=== PATIENT | female | born 1960 | race Caucasian/White ===

== ENCOUNTER → 2021-09-17 09:15 | Outpatient (BNVA) | payer OTHER, SELFPAY | PROVIDERS: PCP Internal Medicine Endocrinology, Diabetes & Metabolism; Visit Provider Hospitalist ==

== ENCOUNTER 2021-09-20 06:38 | Outpatient (REF) | payer OTHER, SELFPAY ==
--- NOTE | ~2021-09-20 | XR_ITS ---
EXAMINATION: XR CHEST CLINICAL INFORMATION: Asthma COMPARISON: None TECHNIQUE: 2 views of the chest were obtained. FINDINGS: The cardiac and mediastinal contours are normal. There is increased opacity in the right upper lobe. This may be related to overlapping bone and vascular structures, right first rib costochondral cartilage. This measures 3 x 4 cm. No abnormality is evident on the lateral view. The lungs are otherwise clear. There is no pleural effusion or pneumothorax. There are degenerative changes of the spine. XR/XR chest 2V IMPRESSION: Increased opacity in the right medial upper lobe. This may be related to overlapping bone and vascular structures. Comparison with old outside chest x-rays if available is recommended. Otherwise follow-up apical lordotic view of the chest or chest CT scan should be considered.
[2021-09-20 07:02] LABS: MANUAL DIFF FLAG NO
[2021-09-20 07:26] LABS: Basophils Absolute Auto 0.1 X10*3/uL (0.0-0.2); Eosinophils Absolute Auto 0.1 X10*3/uL (0.0-0.4); Eosinophils Percent Auto 2.1 % (0-4); Hematocrit 43.3 % (37.0-47.0); Hemoglobin 13.3 g/dl (12.0-16.0); Imm Gran Abs Auto 0.01 X10*3/uL (0.00-0.03); Imm Gran Pct Auto 0.2 % (0.0-0.4); Lymphocytes Absolute Auto 1.3 X10*3/uL (1.2-4.9); Lymphocytes Percent Auto 25.8 % (20-40); Mean Corpuscular HGB Conc 30.7 g/dl (31.0-35.0); Mean Corpuscular Hemoglobin 28.6 pg (27.0-33.0); Mean Corpuscular Volume 93.1 fL (80.0-98.0); Mean Platelet Volume 12.1 fL (9.4-12.3); Monocytes Absolute Auto 0.5 X10*3/uL (0.1-1.2); Monocytes Percent Auto 9.8 % (2-11); Neutrophils Absolute Auto 3.1 x10*3/uL (2.0-8.3); Neutrophils Percent Auto 61.1 % (45-73); Platelet Count 236 X10*3/uL (160-400); Red Blood Count 4.65 X10*6/uL (4.20-5.50); Red Cell Distribution Width 12.7 % (11.0-16.0); White Blood Count 5.1 X10*3/uL (4.8-10.8)
[2021-09-20 08:08] LABS: Erythrocyte Sedimentation Rate 9 MM/HR (0-20)
[2021-09-21 08:50] LABS: Immunoglobulin E 77 kU/L (<OR=114)
[2021-09-29 15:11] LABS: Asperg fumigatus Precip Abs NEGATIVE (NEGATIVE); Micropoly faeni Abs NEGATIVE (NEGATIVE); Pigeon serum Abs NEGATIVE (NEGATIVE); Saccharo pora viridis Abs NEGATIVE (NEGATIVE); Thermo candidus Abs NEGATIVE (NEGATIVE); Thermoa vulgaris #1 NEGATIVE (NEGATIVE)
== END 2021-09-20 06:39 | disposition home or self-care (01) ==
LOC: HO.LAB 06:38
PROVIDERS: PCP Internal Medicine Endocrinology, Diabetes & Metabolism; Visit Provider Hospitalist
DX: J45.909 Unspecified asthma, uncomplicated (principal); R91.8 Other nonspecific abnormal finding of lung field; Z91.09 Other allergy status, other than to drugs and biological substances
CPT/HCPCS: 36415; 71046; 82785; 85025; 85652; 86003; 86331; 86606; 86609

== ENCOUNTER → 2021-11-02 14:27 | Outpatient (BNVA) | payer OTHER, SELFPAY | PROVIDERS: PCP Internal Medicine Endocrinology, Diabetes & Metabolism; Visit Provider Internal Medicine Pulmonary Disease ==

== ENCOUNTER → 2021-11-06 09:45 | Outpatient (BNVA) | payer OTHER, SELFPAY | PROVIDERS: PCP Internal Medicine Endocrinology, Diabetes & Metabolism; Visit Provider Hospitalist | DX: J45.909 Unspecified asthma, uncomplicated (principal); R91.8 Other nonspecific abnormal finding of lung field; T78.40XA Allergy, unspecified, initial encounter; K21.9 Gastro-esophageal reflux disease without esophagitis; J32.9 Chronic sinusitis, unspecified; J31.0 Chronic rhinitis | CPT/HCPCS: 99212 ==

== ENCOUNTER 2022-01-09 08:29 | Outpatient (REF) | payer BC, SELFPAY ==
--- NOTE | ~2022-01-09 | XR_ITS ---
EXAMINATION: XR CHEST CLINICAL INFORMATION: Abnormal finding COMPARISON: 09/20/2021 TECHNIQUE: 2 views of the chest were obtained. XR/XR chest 2V FINDINGS/IMPRESSION: * Persistent opacity within the medial right upper lobe adjacent to the mediastinum. As discussed previously, this may relate to summation shadow from overlapping bone, cartilage calcifications and vascular structures, however the possibility of an underlying lung mass is not excluded. Recommend CT chest. * Left lung clear. * Normal heart size and pulmonary vascularity.
== END 2022-01-09 08:30 | disposition home or self-care (01) ==
LOC: HO.XRAY 08:29
PROVIDERS: PCP Internal Medicine Endocrinology, Diabetes & Metabolism; Visit Provider Hospitalist
DX: R39.89 Other symptoms and signs involving the genitourinary system (principal)
CPT/HCPCS: 71046

== ENCOUNTER → 2022-01-16 08:42 | Outpatient (BNVA) | payer BC, SELFPAY | PROVIDERS: PCP Internal Medicine Endocrinology, Diabetes & Metabolism; Visit Provider Hospitalist | DX: J45.909 Unspecified asthma, uncomplicated (principal) ==

== ENCOUNTER 2023-06-17 14:22 | Outpatient (AMB) | payer BC, SELFPAY ==
--- NOTE | 2023-06-17 14:33 | MHC.OFFVIS ---
Intake Vital Signs 06/17/23 14:34 Height 5 ft 7 in Weight 154 lb 15.759 oz BMI 24.3 Pulse 68 Pulse Source Pulse Oximeter Pulse Oximetry (%) 100 Oxygen Delivery Method Room Air Intake Visit Reasons: Asthma follow-up Unit Aid Required: No Allergies No Known Allergies Allergy (Verified 06/17/23 14:35) HPI HPI Comments History of Present Illness Details The patient is a 63-year-old woman with a known history of psoriatic arthritis in addition to asthma. Apparently she was in her usual state health until back around June 2021 when she was any usual state health. She took her regular inhaler which included Wixela 100/50 and she was cleaning the backyard and raking the leaves. That night she started developing worsening chest tightness. She did have to use rescue inhaler. However, the next day her symptoms got significantly worse. She had significant breathlessness which she had to go outside. She was having respiratory distress. She was able to use her rescue inhaler and gave herself about 6 puffs when slowly improving her symptoms. She did not go to the ER. She then was placed on prednisone and also received a Z-Angelito. The patient finished the course. She has not had any more episodes like that. Although she was so distressed that she has been traumatized from it. She thought she was going to from that event. In the meantime she has been taking Zyrtec and alternating with Laurie. She continues use her respiratory therapy as prescribed. She did have allergy testing back around 30 years ago and she did get allergy shots for about 4 years and they did improve her symptoms. After that for the last 10 or more years she has had increasing asthma and allergy symptoms. We did review her pulmonary function studies that she had back in 2019 which demonstrated significant small airways disease consistent with her severity of asthma. In addition to that her FEV1 to FVC was 72% pre bronchodilator is a 74% post bronchodilators suggesting some Almeida of obstructive physiology. The patient has not had an x-ray. She is also not interested in taking too many medications. We will provide her with a spacer and we did give her T she has not had to use it. She is going to continue with Wixela. Will request additional information cleaning an x-ray and allergy testing. At some point the springtime will perform pulmonary function study to address her obstructive airway disease. 11/06/2021 the patient is here for pulmonary follow-up visit. Recently she was evaluated by our pulmonary office due to worsening cough and shortness breath. She was treated for an asthma exacerbation with a Z-Angelito and also prednisone. She was also given cough syrup. She is still having some issues with sinus congestion and postnasal drip. She also has hoarseness. Her lungs actually sound clear. I presume that most of her symptoms are from sinusitis and postnasal drip. The patient is reluctant to use any nasal sprays but she is willing to use it to see if there is any relief. She did get a Neti pot also and we did talk about the importance of sinus rinsing. We did review her blood work demonstrating no significant allergens although her IgE level was slightly elevated at 73. The rest of the blood work was unremarkable. No clear explanation for the respiratory distress that she developed back in June when she was raking the leaves. We did review her chest x-ray which appears to have some areas of opacity in the right lung. Based on her ongoing symptoms in the abnormal chest x-ray the patient will benefit from getting a CT scan of the chest. 01/16/2022 the patient is here for a pulmonary follow-up visit. Overall she is doing well from a respiratory status. Has not required any prednisone antibiotics since we last spoke. She does continue to use her respiratory therapy with good effect. She has not had to use her rescue inhaler. In the meantime she did undergo a repeat chest x-ray to address the abnormal findings on her initial 1. we had referred for her to get a CT scan. But, she was concerned about the financial component. Therefore she wanted to get the x-ray 1st to make sure. We did review the x-ray is still demonstrated the persistent changes located on the right upper lung zone. Therefore, based on the fact that she still has changes will go ahead and request a CT scan at this time. In addition to that the patient is concerned over his small airways disease. Her last PFTs were back in 2019. Will plan to repeat dose in 6 months. 07/08/2022 the the patient is here for pulmonary follow-up visit. Overall the patient has been doing well. She did go back to using her Advair. She did stop it for some time but noticed that her breathing got worse. Usually falls there were season. Therefore she is using it twice a day. I did encourage her that if she feels better she can always decrease to 1 puff a day. We did review her most recent CT scan that she had in the spring. It appears that the abnormality noted on her chest x-ray was mainly complement of shadows because on the CT scan she did not have any parenchymal disease. She did have a small 2 mm pulmonary nodule that is not significant in appearance. At some point the patient did have a repeat CT scan possibly sometime next year. She does complaint at times of some esophageal spasms or some substernal chest discomfort. This has been evaluated in the past. We talked about the importance of reflux diet. The patient is doing most of better already. She can also use [id number] medications such as Pepcid as needed for her discomfort. The patient did have a bad fall and she fractured her coccyx and therefore she could not have her pulmonary function studies. Clinically the patient is feeling better so it would not change anything right now anyway. 06/17/2023 the patient is here for pulmonary follow-up visit. Overall the patient has been doing well. Unfortunately she did have a bad fall landing on her right shoulder resulting in clavicular fracture. She has significant ecchymosis in the area. There is healed well. She did not need surgery. Her respiratory status was not impacted. She continues on the inhaler. She was switched over to Wixela. She is getting some phonation issues with hoarseness. Is hard when she speaks for a long time where she loses her voice because of the medication. Therefore, will switch over to an Advair HFA with a spacer. This will provide her with less irritation and better administration of the medication. The patient does not any breathing studies at this point. No imaging studies are warranted. Will follow-up in a year's time or sooner if any issues arise. Will consider spirometry when she comes in here. [facility] Medical History (Updated 06/17/23 @ 14:47 by Tyrone Vail MD) Sinusitis GERD (gastroesophageal reflux disease) Allergies Asthma Social History (Updated 11/06/21 @ 10:02 by NILAY Hernandez) Patient Tobacco Use Status: Never used Tobacco Review of Systems Const Denies night sweats ENT Denies hoarseness, Denies lip swelling, Reports nasal congestion, Reports nasal discharge, Reports post nasal drip, Denies sinus pressure and Denies tongue swelling Card Denies chest pain Resp Reports cough GI Denies abdominal pain Musc Denies no additional complaints Neuro Denies Neuro-related abnormal movements Psych Denies no additional complaints Ko/Lymph Denies easy bleeding and Denies lymphadenopathy Aller/Immun Denies lip swelling and Denies tongue swelling Physical Exam Vital Signs: Last Vital Signs Pulse 68 06/17/23 14:34 Pulse Ox 100 06/17/23 14:34 Oxygen Delivery Method Room Air 06/17/23 14:34 BMI result Body Mass Index 24.3 Const General: alert Neck Neck: Yes normal visual inspection, Yes full ROM and Yes no lymphadenopathy Chest Chest palpation & inspection: normal inspection of the chest Resp Effort & Inspection: normal respiratory effort Auscultation: no wheezes and diminished lung sounds Cardio Rate: regular rate Rhythm: regular rhythm Heart sounds: S1 normal heart sound present and S2 normal heart sound present GI Palpation (GI): Soft to palpation and nontender Auscultation: normal bowel sounds Skin General skin exam: rashes and/or lesions noted Assessment & Plan Assessment & Plan (1) Asthma: Code(s): J45.909 - Unspecified asthma, uncomplicated Qualifiers: Asthma complication type: uncomplicated Asthma persistence: persistent Asthma severity: moderate Qualified Code(s): J45.40 - Moderate persistent asthma, uncomplicated (2) Allergies: Code(s): T78.40XA - Allergy, unspecified, initial encounter Qualifiers: Encounter type: initial encounter Qualified Code(s): T78.40XA - Allergy, unspecified, initial encounter (3) GERD (gastroesophageal reflux disease): Code(s): K21.9 - Gastro-esophageal reflux disease without esophagitis Qualifiers: Esophagitis presence: without esophagitis Qualified Code(s): K21.9 - Gastro-esophageal reflux disease without esophagitis Plan continue nasal rinsing continue Fluticasone stop Wixela start Advair HFA Short-acting beta agonist as needed reflux diet Follow-up in 12 months Medications: New fluticasone propion-salmeterol 115-21 mcg/actuation (Advair HFA) 2 puffs inhalation Q12H 90 days 3 ea 3RF Coding Level of Care Code Est Pt Level 4 (84977) Diagnoses Moderate persistent asthma without complication J45.40 Asthma complication type: uncomplicated Asthma persistence: persistent Asthma severity: moderate Allergy, initial encounter T78.40XA Encounter type: initial encounter Gastroesophageal reflux disease without esophagitis K21.9 Esophagitis presence: without esophagitis Time Spent (min) 16
[2023-06-17 14:34] VITALS: PULSE 68; O2SAT 100; BMI 24.3
== END 2023-06-17 15:06 | disposition home or self-care (01) ==
PROVIDERS: PCP Internal Medicine Endocrinology, Diabetes & Metabolism; Visit Provider Hospitalist
DX: J45.40 Moderate persistent asthma, uncomplicated (principal); T78.40XA Allergy, unspecified, initial encounter; K21.9 Gastro-esophageal reflux disease without esophagitis
CPT/HCPCS: 99214

== ENCOUNTER → 2023-06-17 14:22 | Outpatient (BNVA) | payer BC, SELFPAY | PROVIDERS: PCP Internal Medicine Endocrinology, Diabetes & Metabolism; Visit Provider Hospitalist ==

== ENCOUNTER 2025-01-04 08:45 | Outpatient (REF) | payer OTHER, SELFPAY ==
--- NOTE | ~2025-01-04 | XR_ITS ---
EXAMINATION: XR CHEST CLINICAL INFORMATION: R93.89 - Abnormal findings on diagnostic imaging of other specified body... COMPARISON: January 09, 2022. TECHNIQUE: 2 views of the chest were obtained. FINDINGS: Exam has been archived inverted [id number]. No consolidation, pleural effusion or pneumothorax. Cardiomediastinal silhouette size is normal. Multilevel thoracic spondylosis. Degenerative changes in the shoulders. XR/XR chest 2V IMPRESSION: No acute airspace disease. Electronically signed by: Nirmal Vega MD 01/04/2025 10:01 AM EDT
--- OUTSIDE RECORDS SUMMARY | 2025-01-04 10:12 | XMS_ITS ---
Author Name [facility] Organization Unknown Immunizations Vaccine Date Source Lot Number Status Pfizer Comirnaty Covid-19 Pr efilled Syringe (12+ yrs) 06/02/2024 [facility] [id number] completed Fluzone Quadrivalent Single Dose Vial 05/29/2022 [facility] T [id number] completed Fluzone Quadrivalent Single Dose Vial 05/30/2021 [facility] T [id number] completed Encounters Encounter Type Encounter Reason Primary Diagnosis Location Date Ambulatory Covid Vaccination Encounter for immunization [facility] 06/02/2024 Care Team Organization Name Specialty Phone Email Start Date End Da te [facility] NO PCP Primary Care 06/02
--- OUTSIDE RECORDS SUMMARY | 2025-01-04 10:13 | XMS_ITS | Continuity of Care Document ---
Author Organization [facility] [address] [place] [address] Phone [phone] Care Team Providers Care Nurse Ldr Name Role Phone Lynn Landeros M.D. Care Team Informati on Reeling Machine Setup Operator [phone] Problems Active Problems Provider Date Hypothyroidism Lynn Landeros M.D. Ons et: 07/12/2022 Psoriatic arthritis Lynn Landeros M.D. Onset: 07/12/2022 Environmental allergy Agnieszka Croft Onset: 07/12/2022 Asthma Lynn Landeros M.D. Ons et: 07/12/2022 Osteopenia Lynn Landeros M.D. Ons et: 07/12/2022 Doe thyroiditis Agnieszka rCoft Onset: 07/12/2022 Migraine Lynn Landeros M.D. Ons et: 07/12/2022 Hemangioma of liver Lynn Landeros M.D. 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 then on every 4th day, decrease dose by 1 tablet. take until finished. 30tabs Lynn Landeros M.D. 11/30/2024 Wixela Kbcsl703-37ghl/Act Aerosol use 1 inhalation two times a day 180units Lynn Landeros M.D. 05/20/2024 Calcipotriene/Betam ethasone Dipropionate0.005-0 .064% Ointment Apply Once A Day as Directed For Psoriasis 120gm Lynn Landeros M.D. 05/20/2024 Fykwxjuel657bgj Tablets Take 1 Tablet By Mouth Daily 90tabs Lynn Landeros M.D. Zyrtec Zfdnrqn88rc Tablets 1 by mouth every day at bedtime Lynn Landeros M.D. Vitamin B540klr (2000 Ut) Capsules 1 by mouth every day Lynn Landeros M.D. Calcium-Dbrtglghn23 0-250mg Tablets 1 by mouth every day Lynn Landeros M.D. Proventil AQS474(90Base) mcg/Act Aerosol 2 puffs every 4-6 hours [...] Grant 13 mg/dL 5-40 LDL Chol Calc ([facility]) 192 mg/dL High 0-99 LDL Calc Comment: [...] Gap 15.0 mmol/L 10.0-18. 0 Albumin 07/21/2023 [facility] Albumin 4.5 GM/DL (3.4-4.8 ) Basic Metabolic Panel 07/21/2023 [facility] Glucose 76 mg/dL (70-99) BUN 21 mg/dL (8-23) Creatinine 0.9 mg/dL (0.5-1.0 ) Sodium 139 mmol/L (133-145 ) Potassium 5.6 mmol/L High (3.6-5.2 ) Chloride 102 mmol/L (98-107) Bicarbonate 29 mmol/L (22-29) Anion Gap 8 (4-17) Calcium 10.7 mg/dL High (8.6-10. 5) Estimated GFR Creatinine 72 ML/MIN/1.73M 2 3 Cortisol 07/21/2023 [facility] Cortisol 9.3 g /dL 4 Albumin 07/16/2023 [facility] Albumin <pending> Complete Abc With Diff 07/15/2023 [facility] WBC 6.4 K/MM3 (4.0-11. [...] ) Lymph # 1.8 K/MM3 (0.8-3.1 ) Bourbon# 0.5 K/MM3 (0.4-0.9 ) Eo # 0.3 K/MM3 (0.0-0.4 ) Baso # 0.1 K/MM3 (0.0-0.1 ) Abs. Imm Gran 0.0 K/MM3 Neut 58.2 % (44-76) Lymph 28.3 % (15-43) Monocyte 8.4 % (4.5-10. 5) Eo 3.9 % (0-6) Baso 0.9 % (0-2) Imm Gran 0.3 % Basic Metabolic Panel 07/15/2023 [facility] Glucose 93 mg/dL (70-99) BUN 19 mg/dL (8-23) Creatinine 0.8 mg/dL (0.5-1.0 ) Sodium 140 mmol/L (133-145 ) Potassium 5.5 mmol/L High (3.6-5.2 ) Chloride 102 mmol/L (98-107) Bicarbonate 30 mmol/L High (22-29) Anion Gap 8 (4-17) Calcium 10.9 mg/dL High (8.6-10. 5) Estimated GFR Creatinine 80 ML/MIN/1.73M 2 5 TSH With Reflex To FT4 07/15/2023 [facility] TSH With Reflex To FT4 2.75 uIU/mL (0.4-4.2 ) TSH With Reflex To FT4 01/14/2023 [facility] TSH With Reflex To FT4 3.18 uIU/mL (0.4-4.2 ) Hepatic Function Panel 01/03/2023 [facility] Bilirubin,Total 0.4 mg/dL (0-1.2) Bilirubin, Direct <0.2 mg/dL (0-0.3) Indirect Bilirubin Direct bilirubin <SEE NOTE> mg/dL (0.0-0.7 ) 6 Albumin 4.6 GM/DL (3.4-4.8 ) Ast 27 U/L (0-32) Alt 16 U/L (0-33) Alk Phos 82 U/L (35-104) Total Protein 6.9 GM/DL (6.2-8.2 ) Lipid Panel 01/03/2023 [facility] Cholesterol, Total 227 mg/dL High (<200) Triglyceride 62 mg/dL (<150) HDL Chol 69 mg/dL (>39) LDL Cholesterol , Calculated 146 mg/dL High (0-130) Non HDL Cholesterol (Calc) 158 mg/dL (<160) Complete Abc With Diff 07/15/2022 [facility] WBC 3.9 K/MM3 Low [...] ) Lymph # 1.5 K/MM3 (0.8-3.1 ) Bourbon# 0.4 K/MM3 (0.4-0.9 ) Eo # 0.2 K/MM3 (0.0-0.4 ) Baso # 0.1 K/MM3 (0.0-0.1 ) Neut 44.0 % (44-76) Lymph 30.0 % (15-43) Atypical Lymphs 8.0 % High (0-4) Monocyte 10.0 % (4.5-10. 5) Eo 6.0 % (0-6) Baso 2.0 % (0-2) PLT Estimate ADEQUATE Comprehensive Metabolic Panl 07/15/2022 [facility] Glucose 93 mg/dL (70-99) [...] 79 ML/MIN/1.73M 2 7 Lipid Panel 07/15/2022 [facility] Cholesterol, Total 206 mg/dL High (<200) Triglyceride 76 mg/dL (<150) HDL Chol 56 mg/dL (>39) LDL Cholesterol , Calculated 135 mg/dL High (0-130) Non HDL Cholesterol (Calc) 150 mg/dL (<160) TSH With Reflex To FT4 07/15/2022 [facility] TSH With Reflex To FT4 1.73 uIU/mL (0.4-4.2 ) 25Oh Vitamin D 07/15/2022 [facility] 25Oh Vitamin D 37.3 NG/ML (20-50) Hemoglobin A1c 07/15/2022 [facility] Hemoglobin A1c 5.6 % [...] with health care provider. DIAGNOSTIC USE: The [place] Diabetes Association (ADA) and the World Health [...] 1 Procedures Date Code Description Status 07/15/2023 19109 Collection Of Venous Blood B y Venipuncture Completed 01/14/2023 55096 Collection Of Venous Blood B y Venipuncture [...] Code Description Provider 11/30/2024 Z00.01 Encounter for [facility] adult medical examination with abnormal findings Lynn [...]
== END 2025-01-04 08:46 | disposition home or self-care (01) ==
LOC: HO.XRAY 08:45
PROVIDERS: PCP Internal Medicine Endocrinology, Diabetes & Metabolism; Visit Provider Hospitalist
DX: R93.89 Abnormal findings on diagnostic imaging of other specified body structures (principal)
CPT/HCPCS: 71046

== ENCOUNTER 2025-01-04 08:45 | Outpatient (AMB) | payer BC, SELFPAY ==
--- NOTE | 2025-01-04 08:56 | MHC.OFFVIS ---
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 Apparently she was in her usual state health until back around June 2021 when she was any usual state health. She took her regular inhaler which included Wixela 100/50 and she was cleaning the backyard and raking the leaves. That night she started developing worsening chest tightness. She did have to use rescue inhaler. However, the next day her symptoms got significantly worse. She had significant breathlessness which she had to go outside. She was having respiratory distress. She was able to use her rescue inhaler and gave herself about 6 puffs when slowly improving her symptoms. She did not go to the ER. She then was placed on prednisone and also received a Z-Angelito. The patient finished the course. She has not had any more episodes like that. Although she was so distressed that she has been traumatized from it. She thought she was going to from that event. In the meantime she has been taking Zyrtec and alternating with Laurie. She continues use her respiratory therapy as prescribed. She did have allergy testing back around 30 years ago and she did get allergy shots for about 4 years and they did improve her symptoms. After that for the last 10 or more years she has had increasing asthma and allergy symptoms. We did review her pulmonary function studies that she had back in 2019 which demonstrated significant small airways disease consistent with her severity of asthma. In addition to that her FEV1 to FVC was 72% pre bronchodilator is a 74% post bronchodilators suggesting some Almeida of obstructive physiology. The patient has not had an x-ray. She is also not interested in taking too many medications. We will provide her with a spacer and we did give her T she has not had to use it. She is going to continue with Wixela. Will request additional information cleaning an x-ray and allergy testing. At some point the springtime will perform pulmonary function study to address her obstructive airway disease. 11/06/2021 the patient is here for pulmonary follow-up visit. Recently she was evaluated by our pulmonary office due to worsening cough and shortness breath. She was treated for an asthma exacerbation with a Z-Angelito and also prednisone. She was also given cough syrup. She is still having some issues with sinus congestion and postnasal drip. She also has hoarseness. Her lungs actually sound clear. I presume that most of her symptoms are from sinusitis and postnasal drip. The patient is reluctant to use any nasal sprays but she is willing to use it to see if there is any relief. She did get a Neti pot also and we did talk about the importance of sinus rinsing. We did review her blood work demonstrating no significant allergens although her IgE level was slightly elevated at 73. The rest of the blood work was unremarkable. No clear explanation for the respiratory distress that she developed back in June when she was raking the leaves. We did review her chest x-ray which appears to have some areas of opacity in the right lung. Based on her ongoing symptoms in the abnormal chest x-ray the patient will benefit from getting a CT scan of the chest. 01/16/2022 the patient is here for a pulmonary follow-up visit. Overall she is doing well from a respiratory status. Has not required any prednisone antibiotics since we last spoke. She does continue to use her respiratory therapy with good effect. She has not had to use her rescue inhaler. In the meantime she did undergo a repeat chest x-ray to address the abnormal findings on her initial 1. we had referred for her to get a CT scan. But, she was concerned about the financial component. Therefore she wanted to get the x-ray 1st to make sure. We did review the x-ray is still demonstrated the persistent changes located on the right upper lung zone. Therefore, based on the fact that she still has changes will go ahead and request a CT scan at this time. In addition to that the patient is concerned over his small airways disease. Her last PFTs were back in 2019. Will plan to repeat dose in 6 months. 07/08/2022 the the patient is here for pulmonary follow-up visit. Overall the patient has been doing well. She did go back to using her Advair. She did stop it for some time but noticed that her breathing got worse. Usually falls there were season. Therefore she is using it twice a day. I did encourage her that if she feels better she can always decrease to 1 puff a day. We did review her most recent CT scan that she had in the spring. It appears that the abnormality noted on her chest x-ray was mainly complement of shadows because on the CT scan she did not have any parenchymal disease. She did have a small 2 mm pulmonary nodule that is not significant in appearance. At some point the patient did have a repeat CT scan possibly sometime next year. She does complaint at times of some esophageal spasms or some substernal chest discomfort. This has been evaluated in the past. We talked about the importance of reflux diet. The patient is doing most of better already. She can also use [id number] medications such as Pepcid as needed for her discomfort. The patient did have a bad fall and she fractured her coccyx and therefore she could not have her pulmonary function studies. Clinically the patient is feeling better so it would not change anything right now anyway. 06/17/2023 the patient is here for pulmonary follow-up visit. Overall the patient has been doing well. Unfortunately she did have a bad fall landing on her right shoulder resulting in clavicular fracture. She has significant ecchymosis in the area. There is healed well. She did not need surgery. Her respiratory status was not impacted. She continues on the inhaler. She was switched over to Wixela. She is getting some phonation issues with hoarseness. Is hard when she speaks for a long time where she loses her voice because of the medication. Therefore, will switch over to an Advair HFA with a spacer. This will provide her with less irritation and better administration of the medication. The patient does not any breathing studies at this point. No imaging studies are warranted. Will follow-up in a year's time or sooner if any issues arise. Will consider spirometry when she comes in here. 01/04/2025 the patient is here for pulmonary follow-up visit. Overall she is doing better. Recently she did have a viral syndrome resulting asthma exacerbation. She went to her primary care doctor who gave her some prednisone. Afterwards she did develop some issues with vertigo. She has been dealing with it now. It does not seem as bad. She has been concerned though when she changes positions she sometimes starts feeling dizzy spinning around. She has not had any vomiting. We did talk about benign positional vertigo and the fluid shifts that happened with prednisone. In the meantime the patient did have a chest x-ray back at [facility] in the spring of 2023. It demonstrated a the sclerotic lesion in the vertebral body. She has not had any more imaging studies since she lost her insurance at that point. Will have her get an x-ray at this time. If his abnormal she has may need a CAT scan. The patient also decided having some hoarseness. Her Advair was switched over to powdered Wixela. His cousins increased hoarseness and she does have some thrush. Therefore will switch her back to HFA, combination inhaler and will give her then lozenges. The patient returns 6 months if she has any issues prior to this she will call for an earlier assessment. [facility] Medical History (Updated 06/17/23 @ 14:47 by Tyrone Vail MD) Sinusitis GERD (gastroesophageal reflux disease) Allergies Asthma Social History Patient Tobacco Use Status: Never used Tobacco Review of Systems Const Denies chills, Denies fatigue, Denies fever(s), Denies weight gain and Denies weight loss ENT Denies dizziness, Reports hoarseness, Denies lip swelling and Denies tongue swelling Card Denies chest pain, Denies leg edema, Denies lightheadedness, Denies palpitations, Denies dyspnea on exertion, Denies orthopnea and Denies other Resp Reports cough, Denies dyspnea on exertion and Reports wheezing GI Denies hematochezia and Denies change in stool character Musc Denies abnormal gait, Denies muscle weakness, Denies numbness, Denies radiating pain into limb and Denies tingling Neuro Denies abnormal gait, Denies dizziness, Denies numbness and Denies tingling Psych Denies no additional complaints Endo Denies fatigue and Denies palpitations Ko/Lymph Denies easy bleeding and Denies lymphadenopathy Aller/Immun Denies lip swelling, Denies tongue swelling and Reports wheezing Physical Exam Vital Signs: Last Vital Signs Pulse 72 01/04/25 08:57 BP 100/62 01/04/25 08:57 Pulse Ox 99 01/04/25 08:57 Oxygen Delivery Method Room Air 01/04/25 08:57 BMI result Body Mass Index 24.9 Const General: alert Neck Neck: Yes normal visual inspection, Yes full ROM and Yes no lymphadenopathy Chest Chest palpation & inspection: normal inspection of the chest Resp Effort & Inspection: normal respiratory effort Auscultation: no wheezes and diminished lung sounds Cardio Rate: regular rate Rhythm: regular rhythm Heart sounds: S1 normal heart sound present and S2 normal heart sound present GI Palpation (GI): Soft to palpation and nontender Auscultation: normal bowel sounds Skin General skin exam: rashes and/or lesions noted Assessment & Plan Assessment & Plan (1) Asthma: Code(s): J45.909 - Unspecified asthma, uncomplicated Category: Medical Qualifiers: Asthma complication type: uncomplicated Asthma persistence: persistent Asthma severity: moderate Qualified Code(s): J45.40 - Moderate persistent asthma, uncomplicated (2) Allergies: Code(s): T78.40XA - Allergy, unspecified, initial encounter Category: Medical Qualifiers: Encounter type: initial encounter Qualified Code(s): T78.40XA - Allergy, unspecified, initial encounter (3) GERD (gastroesophageal reflux disease): Code(s): K21.9 - Gastro-esophageal reflux disease without esophagitis Category: Medical Qualifiers: Esophagitis presence: without esophagitis Qualified Code(s): K21.9 - Gastro-esophageal reflux disease without esophagitis Plan continue nasal rinsing continue Fluticasone stop Wixela (adverse effect due to powder) restart Advair HFA Short-acting beta agonist as needed reflux diet CXR Follow-up in 12 months Orders: Orders XR chest 2V Today R93.89 - Abnormal findings on diagnostic imaging of other specified body structures Medications: New nystatin 500,000 units PO TID 14 days 1 tab 0RF fluticasone propion-salmeterol 115-21 mcg/actuation (Advair HFA) 2 puffs inhalation Q12H 12 grams 11RF 30 days Coding Level of Care Code Est Pt Level 4 (15995) Diagnoses Moderate persistent asthma without complication J45.40 Asthma complication type: uncomplicated Asthma persistence: persistent Asthma severity: moderate Allergy, initial encounter T78.40XA Encounter type: initial encounter Gastroesophageal reflux disease without esophagitis K21.9 Esophagitis presence: without esophagitis Time Spent (min) 16
[2025-01-04 08:57] VITALS: BP 100/62; PULSE 72; O2SAT 99; BMI 24.9
--- OUTSIDE RECORDS SUMMARY | 2025-01-04 09:08 | XMS_ITS | Continuity of Care Document ---
Author Organization [facility] [address] [place] [address] Phone [phone] Care Team Providers Care Epic Prelude Analyst Name Role Phone Lynn Landeros M.D. Care Team Informati on Inner Tube Cutter [phone] Problems Active Problems Provider Date Hypothyroidism Lynn Landeros M.D. Ons et: 07/12/2022 Psoriatic arthritis Lynn Landeros M.D. Onset: 07/12/2022 Environmental allergy Agnieszka Croft Onset: 07/12/2022 Asthma Lynn Landeros M.D. Ons et: 07/12/2022 Osteopenia Lynn Landeros M.D. Ons et: 07/12/2022 Doe thyroiditis Agnieszka Croft Onset: 07/12/2022 Migraine Lynn Landeros M.D. Ons et: 07/12/2022 Hemangioma of liver Lynn Landeros M.D. 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 then on every 4th day, decrease dose by 1 tablet. take until finished. 30tabs Lynn Landeros M.D. 11/30/2024 Wixela Dordr196-66ozf/Act Aerosol use 1 inhalation two times a day 180units Lynn Landeros M.D. 05/20/2024 Calcipotriene/Betam ethasone Dipropionate0.005-0 .064% Ointment Apply Once A Day as Directed For Psoriasis 120gm Lynn Landeros M.D. 05/20/2024 [id number] Tablets Take 1 Tablet By Mouth Daily 90tabs Lynn Landeros M.D. Zyrtec Unzaibj38fx Tablets 1 by mouth every day at bedtime Lynn Landeros M.D. Vitamin Y576fyi (2000 Ut) Capsules 1 by mouth every day Lynn Landeros M.D. Calcium-Evoepklvk69 0-250mg Tablets 1 by mouth every day Lynn Landeros M.D. Proventil NSI497(90Base) mcg/Act Aerosol 2 puffs every 4-6 hours as needed 20.1gm Lynn Landeros M.D. Vital Signs Date Vital Result Comment 11/30/2024 9:24am BP Systolic 120 mmHg BP Diastolic 66 mmHg Heart Rate 78 /min Height 66.5 inches 5'6.50 Weight 162.50 lb BMI (Body Mass Index) 25.8 kg/m2 Results Test Acquired Date Facility Test Result H/L Range Note Lipid Panel 05/26/2024 [facility] Cholesterol, Total 262 mg/dL High 100-199 Triglycerides 77 mg/dL 0-149 HDL Cholesterol 57 mg/dL >39 VLDL Cholestero l Grant 13 mg/dL 5-40 LDL Chol Calc ([facility]) 192 mg/dL High 0-99 LDL Calc Comment: See Comment: 1 CBC With Differential/Vikas telet 05/26/2024 [facility] WBC 4.8 x10E3/uL 3.4-10.8 RBC 4.69 x10E6/uL 3.77-5.2 8 Hemoglobin 13.8 g/dL 11.1-15. 9 Hematocrit 41.6 % 34.0-46. 6 MCV 89 fL 79-97 MCH 29.4 pg 26.6-33. 0 MCHC 33.2 g/dL 31.5-35. 7 RDW 12.2 % 11.7-15. 4 Platelets 223 x10E3/uL 150-450 Neutrophils 49 % Not Estab. Lymphs 35 % Not Estab. Monocytes 9 % Not Estab. Eos 6 % Not Estab. Basos 1 % Not Estab. Immature Cells TNP Neutrophils (Absolute) 2.4 x10E3/uL 1.4-7.0 Lymphs (Absolute) 1.7 x10E3/uL 0.7-3.1 Monocytes(Absol u te) 0.4 x10E3/uL 0.1-0.9 Eos (Absolute) 0.3 x10E3/uL 0.0- 0.4 Baso (Absolute) 0.1 x10E3/uL 0.0 -0.2 Immature Granulocytes 0 % Not Estab. Immature Grans (Abs) 0.0 x10E3/uL 0.0-0.1 NRBC TNP Hematology Comments: TNP TSH+Free T4 05/26/2024 [facility] TSH 2.740 uIU/mL 0.450-4. 500 T4,Free(Direct) 1.10 ng/dL 0.82- 1.7 7 Comp. Metabolic Panel (14) 05/26/2024 [facility] Glucose 98 mg/dL 70-99 BUN 15 mg/dL 8-27 Creatinine 0.82 mg/dL 0.57-1.0 0 eGFR 80 mL/min/1.73 >59 BUN/Creatinine Ratio 18 12-28 Sodium 138 mmol/L 134-144 Potassium 5.0 mmol/L 3.5-5.2 Chloride 102 mmol/L 96-106 Carbon Dioxide, Total 25 mmol/L 20-29 Calcium 10.2 mg/dL 8.7-10.3 Protein, Total 7.1 g/dL 6.0-8.5 Albumin 4.5 g/dL 3.9-4.9 Globulin, Total 2.6 g/dL 1.5-4.5 Bilirubin, Total 0.4 mg/dL 0.0-1 .2 Alkaline Phosphatase 86 IU/L 44-121 Ast (Sgot) 28 IU/L 0-40 Alt (SGPT) 20 IU/L 0-32 TSH 11/14/2023 [facility] TSH 2.410 uIU/mL 0.450-4. 500 2 Ep+Anion Gap 11/14/2023 [facility] Sodium 140 mmol/L 134-144 Potassium 5.3 mmol/L High 3.5-5.2 Chloride 102 mmol/L 96-106 Carbon Dioxide, Total 23 mmol/L 20-29 Anion Gap 15.0 mmol/L 10.0-18. 0 Albumin 07/21/2023 [facility] Albumin 4.5 GM/DL (3.4-4.8 ) Basic Metabolic Panel 07/21/2023 [facility] Glucose 76 mg/dL (70-99) BUN 21 mg/dL (8-23) Creatinine 0.9 mg/dL (0.5-1.0 ) Sodium 139 mmol/L (133-145 ) Potassium 5.6 mmol/L High (3.6-5.2 ) Chloride 102 mmol/L (98-107) Bicarbonate 29 mmol/L (22-29) Anion Gap 8 (4-17) Calcium 10.7 mg/dL High (8.6-10. 5) Estimated GFR Creatinine 72 ML/MIN/1.73M 2 3 Cortisol 07/21/2023 [facility] Cortisol 9.3 g /dL 4 Albumin 07/16/2023 [facility] Albumin <pending> Complete Abc With Diff 07/15/2023 [facility] WBC 6.4 K/MM3 (4.0-11. 0) RBC 4.79 M/MM3 (4.20-5. 40) HGB 13.6 GM/DL (11.7-15 .5) HCT 44.3 % (35.7-45 .8) MCV 92.5 FL (80.0-10 0.0) MCH 28.4 pg (27.0-34 .0) MCHC 30.7 g/dL Low (33.0-37 .0) PLT 239 K/MM3 (150-460 ) RDW-SD 43.5 FL (<47.0) MPV 12.5 FL High (9.4-12. 4) Automated NRBC 0.0 #/100WBC'S Abs. NRBC 0.0 K/MM3 Neut # 3.7 K/MM3 (1.3-7.0 ) Lymph # 1.8 K/MM3 (0.8-3.1 ) Wolfe# 0.5 K/MM3 (0.4-0.9 ) Eo # 0.3 K/MM3 (0.0-0.4 ) Baso # 0.1 K/MM3 (0.0-0.1 ) Abs. Imm Gran 0.0 K/MM3 Neut 58.2 % (44-76) Lymph 28.3 % (15-43) Monocyte 8.4 % (4.5-10. 5) Eo 3.9 % (0-6) Baso 0.9 % (0-2) Imm Gran 0.3 % Basic Metabolic Panel 07/15/2023 [facility] Glucose 93 mg/dL (70-99) BUN 19 mg/dL (8-23) Creatinine 0.8 mg/dL (0.5-1.0 ) Sodium 140 mmol/L (133-145 ) Potassium 5.5 mmol/L High (3.6-5.2 ) Chloride 102 mmol/L (98-107) Bicarbonate 30 mmol/L High (22-29) Anion Gap 8 (4-17) Calcium 10.9 mg/dL High (8.6-10. 5) Estimated GFR Creatinine 80 ML/MIN/1.73M 2 5 TSH With Reflex To FT4 07/15/2023 [facility] TSH With Reflex To FT4 2.75 uIU/mL (0.4-4.2 ) TSH With Reflex To FT4 01/14/2023 [facility] TSH With Reflex To FT4 3.18 uIU/mL (0.4-4.2 ) Hepatic Function Panel 01/03/2023 [facility] Bilirubin,Total 0.4 mg/dL (0-1.2) Bilirubin, Direct <0.2 mg/dL (0-0.3) Indirect Bilirubin Direct bilirubin <SEE NOTE> mg/dL (0.0-0.7 ) 6 Albumin 4.6 GM/DL (3.4-4.8 ) Ast 27 U/L (0-32) Alt 16 U/L (0-33) Alk Phos 82 U/L (35-104) Total Protein 6.9 GM/DL (6.2-8.2 ) Lipid Panel 01/03/2023 [facility] Cholesterol, Total 227 mg/dL High (<200) Triglyceride 62 mg/dL (<150) HDL Chol 69 mg/dL (>39) LDL Cholesterol , Calculated 146 mg/dL High (0-130) Non HDL Cholesterol (Calc) 158 mg/dL (<160) Complete Abc With Diff 07/15/2022 [facility] WBC 3.9 K/MM3 Low (4.0-11. 0) RBC 4.48 M/MM3 (4.20-5. 40) HGB 13.1 GM/DL (11.7-15 .5) HCT 41.0 % (35.7-45 .8) MCV 91.5 FL (80.0-10 0.0) MCH 29.2 pg (27.0-34 .0) MCHC 32.0 g/dL Low (33.0-37 .0) PLT 185 K/MM3 (150-460 ) RDW-SD 43.4 FL (<47.0) MPV 11.9 FL (9.4-12. 4) Automated NRBC 0.0 #/100WBC'S Abs. NRBC 0.0 K/MM3 Neut # 1.7 K/MM3 (1.3-7.0 ) Lymph # 1.5 K/MM3 (0.8-3.1 ) Wolfe# 0.4 K/MM3 (0.4-0.9 ) Eo # 0.2 K/MM3 (0.0-0.4 ) Baso # 0.1 K/MM3 (0.0-0.1 ) Neut 44.0 % (44-76) Lymph 30.0 % (15-43) Atypical Lymphs 8.0 % High (0-4) Monocyte 10.0 % (4.5-10. 5) Eo 6.0 % (0-6) Baso 2.0 % (0-2) PLT Estimate ADEQUATE Comprehensive Metabolic Panl 07/15/2022 [facility] Glucose 93 mg/dL (70-99) BUN 12 mg/dL (8-23) Creatinine 0.8 mg/dL (0.5-1.0 ) Sodium 138 mmol/L (133-145 ) Potassium 5.0 mmol/L (3.6-5.2 ) Chloride 102 mmol/L (98-107) Bicarbonate 30 mmol/L High (22-29) Anion Gap 6 (4-17) Albumin 4.6 GM/DL (3.4-4.8 ) Calcium 10.3 mg/dL (8.6-10. 5) Bilirubin,Total 0.3 mg/dL (0-1.2 ) Total Protein 6.9 GM/DL (6.2-8.2 ) Ag Ratio 2.0 Ast 40 U/L High (0-32) Alk Phos 90 U/L (35-104) Alt 24 U/L (0-33) Estimated GFR Creatinine 79 ML/MIN/1.73M 2 7 Lipid Panel 07/15/2022 [facility] Cholesterol, Total 206 mg/dL High (<200) Triglyceride 76 mg/dL (<150) HDL Chol 56 mg/dL (>39) LDL Cholesterol , Calculated 135 mg/dL High (0-130) Non HDL Cholesterol (Calc) 150 mg/dL (<160) TSH With Reflex To FT4 07/15/2022 [facility] TSH With Reflex To FT4 1.73 uIU/mL (0.4-4.2 ) 25Oh Vitamin D 07/15/2022 [facility] 25Oh Vitamin D 37.3 NG/ML (20-50) Hemoglobin A1c 07/15/2022 [facility] Hemoglobin A1c 5.6 % (4.0-5.6 ) 8 1 Consider evaluating for Familial Hypercholesterolemia(FH), if clinically indicated. 2 PLEASE DRAW WITHOUT TOUR NIQUET IF POS 3 Creatinine based est imated glomerular filtration (eGFR) in adults is calculated using the National Kidney Foundation recommended 2021 CKD-EPI equation. Estimates GFR from serum creatinine, age and sex. 4 Reference Range: 6-10 am: 6.0-18.4 ug/dL 4-8 pm: 2.7-10.5 ug/dL 5 Creatinine based est imated glomerular filtration (eGFR) in adults is calculated using the National Kidney Foundation recommended 2021 CKD-EPI equation. Estimates GFR from serum creatinine, age and sex. 6 Direct bilirubin is less than the measureable limit. Therefore, indirect bilirubin cannot be calculated. 7 Creatinine based est imated glomerular filtration (eGFR) in adults is calculated using the National Kidney Foundation recommended 2021 CKD-EPI equation. Estimates GFR from serum creatinine, age and sex. 8 MONITORING: In known diabetic patients, hemoglobin A1c targets should be discussed with health care provider. DIAGNOSTIC USE: The [place] Diabetes Association (ADA) and the World Health Organization (WHO) recommend the use of HbA1c to diagnose diabetes using a threshold of 6.5%. Patients who have an HbA1c between 5.7% and 6.4% are considered at increased risk for developing diabetes in the future. CAUTION: Falsely low HbA1c results may be observed in patients with hemolytic anemia, homozygous forms of abnormal hemoglobin (e.g. SS, CC, SC), , recent blood loss or hemoglobin F greater than 7%. Fructosamine may be used as an alternate test in these cases. REFERENCE: ADA: Standards of Medical Care in Diabetes 2020, The Journal of Clinical and Applied Research and Education Volume 43, Supplement 1 Procedures Date Code Description Status 07/15/2023 34319 Collection Of Venous Blood B y Venipuncture Completed 01/14/2023 25364 Collection Of Venous Blood B y Venipuncture Completed Medical Devices Description No Information Available Encounters Type Date Location Provider Dx Diagnosis Office Visit 11/30/2024 9:15a Main Office Lynn Landeros M.D. Z00.01 Encounter for general adult medical exam w abnormal findings J45.909 Unspecified asthma, uncomplicated E03.9 Hypothyroidism, unsp ecified M85.80 Oth disrd of bone de nsity and structure, unspecified site E06.3 Autoimmune thyroidit is E78.00 Pure hypercholestero lemia, unspecified Assessments Date Code Description Provider 11/30/2024 Z00.01 Encounter for [facility] adult medical examination with abnormal findings Lynn Landeros M.D. 11/30/2024 J45.909 Asthmatic bronchitis NOS Mis Landeros M.D. 11/30/2024 E03.9 Hypothyroidism, unspecified Lynn Landeros M.D. 11/30/2024 M85.80 Other specified disorders of bone density and structure, unspecified site Lynn Landeros M.D. 11/30/2024 E06.3 Autoimmune thyroiditis Cruz Landeros M.D. 11/30/2024 E78.00 Pure hypercholes terolemia, unspecified Lynn Landeros M.D. Plan of Treatment Future Appointment(s):* 06/08/2025 8:00 am - Lynn Landeros M.D. at Main Office 11/30/2024 - Lynn Landeros M.D.* Z00.01 Encounter for general adult medical examination with abnormal findings * J45.909 Asthmatic bronchitis NOS * E03.9 Hypothyroidism, unspecified * M85.80 Other specified disorders of bone density and structure, unspecified site * E06.3 Autoimmune thyroiditis * E78.00 Pure hypercholesterolemia, unspecified * Functional Status Description No Information Available Mental Status Description No Information Available Referrals Description No Information Available
== END 2025-01-04 09:28 | disposition home or self-care (01) ==
LOC: HO.HPS 08:45
PROVIDERS: PCP Internal Medicine Endocrinology, Diabetes & Metabolism; Visit Provider Hospitalist
DX: J45.40 Moderate persistent asthma, uncomplicated (principal); T78.40XA Allergy, unspecified, initial encounter; K21.9 Gastro-esophageal reflux disease without esophagitis
CPT/HCPCS: 99214

== ENCOUNTER → 2025-01-04 09:37 | Outpatient (BNV) | payer BC, SELFPAY | PROVIDERS: PCP Internal Medicine Endocrinology, Diabetes & Metabolism; Visit Provider Radiology Diagnostic Radiology | DX: J45.20 Mild intermittent asthma, uncomplicated (principal) | CPT/HCPCS: 71046 ==